=== PATIENT | male | born 1950 | race Caucasian/White ===

== ENCOUNTER 2019-04-07 21:29 | Emergency (ER) | payer OTHER ==
--- OUTSIDE RECORDS SUMMARY | 2019-04-07 21:39 | XMS REPORT | Continuity of Care Document ---
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 Provider Date Calcific tendinitis of left shoulder Frankie Richey MD Onset: 03/19/2019 Social History Type Date Description Comments Sex Unknown Tobacco Use Start: Unknown Patient has never smoked Smoking Status Reviewed: 03/19/19 Patient has never smoked Allergies, Adverse Reactions, Alerts Description No Known Drug Allergies Medications Description No Active Medications Immunizations Description No Information Available Vital Signs Date Vital Result Comment 03/19/2019 10:20am Height 69 inches 5'9" Weight 162.00 lb Heart Rate 67 /min BP Systolic 124 mmHg BP Diastolic 72 mmHg Body Temperature 97.7 F Pain Level 3 BMI (Body Mass Index) 23.9 kg/m2 Results Description No Information Available Procedures Date Code Description Status 03/19/2019 81547 Inject/Drain Joint/Bursa Major W/O US Completed Medical Devices Description No Information Available Encounters Description No Information Available Assessments Date Code Description Provider 03/19/2019 M75.32 Calcific tendinitis of left shoulder Frankie Richey MD Plan of Treatment 03/19/2019 - Frankie Richey MDM75.32 Calcific tendinitis of left shoulderNew Therapy:Physical TherapyFollow up:Follow up: 6 weeks Functional Status Description No Information Available Mental Status Description No Information Available Referrals Description No Information Available
--- NOTE | 2019-04-07 22:00 | ED ---
Syncope/Near Syncope - HPI Summary HPI Summary: This patient is a 69 year old F presenting to ED with a chief complaint of syncope SIDE LASTER TACK. Earlier today, patient felt like he was starting to get a cold. Patient was working on the car at noon at whacked his right hand. He had a blood blister on his right hand. Patient washed the cut with water and bandaged it. Patient then walked to the DrDoctor from home and then came home and took a nap. He had dinner and helped cook specialty foreign food and felt fine then. He then felt lightheadedness and fainted while getting up out of bed and thinks he hit some boxes. He denies injury. He does not think he lost consciousness for very long. Per patient , she heard a noise from upstairs and states that the patient called out for help 5 minutes after the noise. Patient states he called for help right after waking up. Patients found the patient lying in the floor awake. When patient awoke he noted that his left eye was slightly blurry and he had skin diaphoresis. Patients helped the patient get up and walk down the stairs to come to the ED. Patient denies chest pain, back pain , headache, nausea, vomiting. Patient reports dry mouth. Patient previously had one syncopal episode thirty years ago. The patient rates the pain 7/10 in severity. Symptoms aggravated by nothing. Symptoms alleviated by nothing. - History Of Current Complaint Chief Complaint: EDSyncope Time Seen by Provider: 04/07/19 21:48 Hx Obtained From: Patient, Family/Containers Sales Representative - Onset/Duration: Sudden Onset, Lasting Minutes - 5 minutes, Resolved Context: Unwitnessed, Loss Of Consciousness Activity At Onset: Other - Getting up out of bed Associated Head Trauma: No Aggravating Factor(s): Nothing Alleviating Factor(s): Nothing Associated Signs And Symptoms: Negative - chest pain, back pain, headache, nausea, vomiting, Diaphoresis, Lightheadedness, Other - Right thumb pain, dry mouth - Allergies/Home Medications Allergies/Adverse Reactions: Allergies Allergy/AdvReac Type Severity Reaction Status Date / Time No Known Allergies Allergy Verified 04/07/19 21:33 PMH/Surg Hx/FS Hx/Imm Hx Endocrine/Hematology History: Denies: Hx Diabetes Cardiovascular History: Denies: Hx Angina, Hx Congenital Heart Disease, Hx Congestive Heart Failure, Hx Coronary Artery Disease, Hx Hypercholesterolemia, Hx Hypertension, Hx Myocardial Infarction Respiratory History: Denies: Hx Asthma, Hx Chronic Obstructive Pulmonary Disease (COPD) Sensory History: Reports: Hx Contacts or Glasses Denies: Hx Hearing Aid Opthamlomology History: Reports: Hx Contacts or Glasses - Surgical History Surgery Procedure, Year, and Place: CAROLYN CATARACTS, 2002, [facility]. TONSILECTOMY, AGE 11, [facility] Hx Anesthesia Reactions: No Infectious Disease History: No Infectious Disease History: Denies: Traveled Outside the [place] in Last 30 Days - Family History Known Family History: Positive: Respiratory Disease - COPD, Other - Lung CA - Social History Alcohol Use: Occasionally Hx Substance Use: No Substance Use Type: Reports: None Hx Tobacco Use: No Smoking Status (MU): Never Smoked Tobacco Review of Systems Positive: Skin Diaphoresis Positive: Blurred Vision - Left eye ENT: Other - Dry mouth Negative: Chest Pain Negative: Vomiting, Nausea Musculoskeletal: Negative - Negative back pain, Other - Right thumb laceration and pain Neurological: Other - Lightheadedness All Other Systems Reviewed And Are Negative: Yes Physical Exam - Summary Physical Exam Summary: Appearance: Well-appearing, Well-nourished, lying in bed comfortable Skin: Warm, dry, no obvious rash Eyes: sclera anicteric, no conjunctival pallor ENT: mucous membranes moist Neck: deferred Respiratory: No signs of respiratory distress Cardiovascular: Appears well perfused, pulses are nml Abdomen: deferred Musculoskeletal: Small flat laceration about 1cm on the radial side of the dorsal thumb overlying the IP joint. The distal phalanx is held in flexion and the patient is unable to extend the phalanx. Neurological: Awake and alert, mentation is normal, speech is fluent and appropriate Psychiatric: affect is normal, does not appear anxious or depressed Triage Information Reviewed: Yes Vital Signs On Initial Exam: Initial Vitals Temp Pulse Resp BP Pulse Ox 97.7 F 71 15 97/71 96 04/07/19 21:31 04/07/19 21:31 04/07/19 21:31 04/07/19 21:31 04/07/19 21:31 Vital Signs Reviewed: Yes Procedures - Sedation Patient Received Moderate/Deep Sedation with Procedure: No - Splinting Right Thumb Location: Right thumb into 1st metacarpal Pre-Made Type: Aluminum foam Pre-Proc Neuro Vasc Exam: normal Post-Proc Neuro Vasc Exam: normal Splint Applied by Provider: Ricci Fagan Diagn[facility] - Vital Signs Vital Signs Temp Pulse Resp BP Pulse Ox 04/07/19 21:31 97.7 F 71 15 97/71 96 - Laboratory Result Diagrams: 04/07/19 22:12 04/07/19 22:12 Lab Statement: Any lab studies that have been ordered have been reviewed, and results considered in the medical decision making process. - EKG 2145 Cardiac Rate: NL - 68 BPM EKG Rhythm: Sinus Rhythm ST Segment: Normal Ectopy: None Summary of EKG Findings: NSR at 68 BPM, P waves, QRS complex, and T waves are within normal limits, T waves and intervals are normal, no ischemic changes. This is a normal EKG. Dr. Fagan has reviewed and interpreted this EKG. Re-Evaluation - Re-Evaluation First Eval Re-Evaluation Time: 00:46 Comment: Discussed results with patient. Splinted patient's thumb. Patient will be discharged home with dx of syncope, right thumb laceration, tendon laceration. Patient understands and agrees with this plan. Course/Dx Course Of Treatment: This patient is a 69 year old F presenting to ED with a chief complaint of syncope SIDE LASTER TACK. EKG at 6 revealed NSR at 68 BPM, P waves, QRS complex, and T waves are within normal limits, T waves and intervals are normal, no ischemic changes. This is a normal EKG. In the ED course, patient received fluids. Blood work revealed WBC 12.5, MPV 6.0, neutrophils 10.8, lymphocytes 0.7, sodium 132, chloride 99, creatinine 1.22, glucose 205. UA revealed 1+ urine ketone and 2+ urine glucose. I splinted the patient's thumb with an aluminum foam splint that goes along the right thumb into the first metacarpal. Discussed results with patient. Patient will be discharged home with dx of syncope and right thumb laceration and tendon laceration. Patient understands and agrees with this plan. - Diagnoses Provider Diagnoses: Syncope, Laceration of right thumb, Tendon laceration Discharge ED - Sign-Out/Discharge Documenting (check all that apply): Patient Departure - Discharge - Discharge Plan Condition: Good Disposition: HOME Prescriptions: Cephalexin CAP* [Keflex CAP*] 500 mg PO QID #20 cap Patient Education Materials: Syncope (ED), Laceration Without Closure (ED), Tendon Laceration (ED) Referrals: Garret Lira MD [Medical Doctor] - As Soon As Possible Porfirio Long MD [Primary Care Provider] - 3 Days (call for followup appt to see if your doctor feels further testing might be needed) Additional Instructions: Call the orthopedic clinic in the am and explain your injury and that you cannot extend the distal phalanx of the thumb, and that the ER doctor was concerned that you have an extensor tendon laceration. They will get you in to see the right doctor probably within the next few days. - Billing Disposition and Condition Condition: GOOD Disposition: Home - Attestation Statements Document Initiated by Konrad: Yes Documenting Scribe: Haris Trammell Provider For Whom Konrad is Documenting (Include Credential): Ricci Fagan MD Scribe Attestation: Haris Vazquez, scribed for Ricci Fagan MD on 04/08/19 at 0509. Scribe Documentation Reviewed: Yes Provider Attestation: The documentation as recorded by the Haris ibrahim accurately reflects the service I personally performed and the decisions made by me, Ricci Fagan MD Status of Scribmelva Document: Viewed
[2019-04-07] MEDS ORDERED: NS 0.9% 1000 ML** 1,000 ML IV ONE (22:04)
[2019-04-07 22:19] LABS: ABS Basophils 0.1 10^3/ul (0-0.2); ABS Eosinophils 0.2 10^3/ul (0-0.6); ABS Lymphocytes 0.7 10^3/ul (1.0-4.8); ABS Monocytes 0.8 10^3/ul (0-0.8); ABS Neutrophils 10.8 10^3/ul (1.5-7.7); Eosinophil % 1.2 %; Hematocrit 42 % (42-52); Hemoglobin 14.3 g/dL (14.0-18.0); Lymphocyte % 5.6 %; Mean Corpuscular HGB Conc 34 g/dL (31-36); Mean Corpuscular Hemoglobin 31 pg (27-31); Mean Corpuscular Volume 92 fL (80-94); Platelet Count 237 10^3/uL (150-450); Red Blood Count 4.57 10^6 /uL (4.18-5.48); Red Cell Distribution Width 13 % (10-15); White Blood Count 12.5 10^3/uL (3.5-10.8)
[2019-04-07 22:36] LABS: Albumin 3.8 g/dL (3.2-5.2); Albumin/Globulin Ratio 1.3 (1-3); BUN/Creatinine Ratio 13.1 (8-20); Calcium 8.9 mg/dL (8.6-10.3); EGFR African American 71.1 (>60); EGFR Non-African American 58.7 (>60); Globulin 2.9 g/dL (2-4); Potassium 3.9 mmol/L (3.5-5.0); Total Bilirubin 0.7 mg/dL (0.2-1.0); Total Protein 6.7 g/dL (6.4-8.9)
[2019-04-07 22:38] LABS: Troponin I 0.01 ng/mL (<0.04)
[2019-04-07 23:28] LABS: TSH (Thyroid Stimulating Horm) 1.79 mcIU/mL (0.34-5.60)
[2019-04-07 23:46] LABS: Urine Appearance Clear; Urine Bilirubin Negative (Negative); Urine Blood Negative (Negative); Urine Color Yellow; Urine Glucose 2+(150 mg/dL) (Negative); Urine Ketones 1+ (Negative); Urine Nitrite Negative (Negative); Urine Protein Negative (Negative); Urine Specific Gravity 1.011 (1.010-1.030); Urine Urobilinogen Negative (Negative)
[2019-04-08 01:07] VITALS: BP 110/69
== END 2019-04-08 01:06 | disposition home or self-care (01) ==
LOC: ED 21:29
DX: R55 Syncope and collapse (principal); S56.021A Laceration of flexor muscle, fascia and tendon of right thumb at forearm level, initial encounter; S61.011A Laceration without foreign body of right thumb without damage to nail, initial encounter; W22.8XXA Striking against or struck by other objects, initial encounter; Y92.9 Unspecified place or not applicable; R42 Dizziness and giddiness
CPT/HCPCS: 36415; 80053; 81003; 84443; 84484; 85025; 93005; 96360; 99283

== ENCOUNTER → 2019-04-18 05:46 | Day surgery (SDC) | payer OTHER ==
--- NOTE | 2019-04-16 14:49 | HP ---
PREOPERATIVE HISTORY AND PHYSICAL: DATE OF SURGERY/ADMISSION: 04/18/19 DATE OF OFFICE VISIT/ENCOUNTER: 04/15/19 ATTENDING SURGEON: Pao Conrad MD * (DICTATED BY ARJUN DUBOSE) PROCEDURE: Extensor tendon repair, right thumb. HISTORY OF PRESENT ILLNESS: This is a 69-year-old male who sustained injury to his right thumb approximately 2 weeks ago when he was working on his car. The patient reports that he smashed his thumb and the gloves that he had on were ripped through easily and he sustained a puncture over his right thumb at the IP joint. He was seen at [facility] and the patient had the wound attended to, he was placed on Keflex and in a splint to keep the IP joint extended. He has had difficulty extending his thumb since the injury occurred. Over time, the puncture wound has healed, but the patient is still not able to extend the thumb. He has good flexion. He finished the antibiotics with no problems with infection. He denies any associated numbness or tingling. Dr. Conrad is recommending surgical intervention at this time to repair the extensor tendon of the right thumb. PAST MEDICAL HISTORY: Unremarkable. PAST SURGICAL HISTORY: Hernia repair. CURRENT MEDICATIONS: Advil PM p.r.n. ALLERGIES: No known drug allergies. FAMILY MEDICAL HISTORY: Heart disease. 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 He denies tobacco use and recreational drug use. He drinks alcohol on occasion. REVIEW OF SYSTEMS: Negative for general, cephalic, cardiovascular, respiratory , GI, , other musculoskeletal, integumentary, endocrine, neurologic, and hematologic symptoms. Infectious Disease: Negative for MRSA, hepatitis C, HIV. PHYSICAL EXAMINATION GENERAL: Well-developed, well-nourished 69-year-old male, in no acute distress. VITAL SIGNS: Height 5 feet 9 inches, weight 162 pounds, pulse rate 72, blood pressure 128/68. HEENT: Normocephalic, atraumatic. Pupils are equal, round, and reactive to light and accommodation. Extraocular movements are intact. Throat is clear. NECK: Supple. No palpable lymph nodes. PULMONARY: Lungs are clear to auscultation bilaterally. No wheezes, rales, or rhonchi. CARDIOVASCULAR: Regular rate and rhythm. S1, S2. No murmurs, rubs, or gallops. No edema. ABDOMEN: Positive bowel sounds, soft, nontender. NEUROLOGIC: Alert and oriented x3. Cranial nerves II through XII are intact. Sensation is intact to light touch. MUSCULOSKELETAL: On exam of his right thumb, the puncture wound is healed. Sensation is intact. No sign of infection. The patient is unable to extend the thumb. He has good thumb flexion. IMPRESSION: Right thumb extensor tendon laceration. PLAN: The patient is scheduled to undergo an extensor tendon repair, right thumb with Dr. Conrad on 04/18/19. He will return to the office in 10 days postop for followup and suture removal. A prescription for [place] was e-scribed to the patient's pharmacy for postoperative pain management. ARJUN DUBOSE [id number]/CPS #: [id number] MTDMariam
[~2019-04-18 05:46] MED LIST: Buffered Lidocaine 1% SYRIN* 1 ML/SYRINGE INTRADERM ONE; Dexamethasone IV* 4 MG/ML 1 ML (4 MG) ONE; Famotidine IV* 10 MG/ML 2 ML (20 mg) IV ONE; Famotidine IV* 10 MG/ML 2 ML (20 mg) ONE; KETAMINE HCL* 50 MG/ML 10 ML VIAL ONE; Ketorolac INJ* 30 MG/ML 1 ML VIAL ONE; Lactated Ringers 1000 ML Bag* 1,000 ML IV SCH; Lidocaine 1% INJ* 10 MG/ML 30 ML SDV ONE; Lidocaine 2% PF * 5 ML VIAL ONE; Midazolam* 1 MG/ML 5 ML VIAL (5 MG) ONE; Naloxone* 0.4 MG/ML 1 ML VIAL IV PRN; Ondansetron INJ* 2 MG/ML VIAL IV PRN; Ondansetron INJ* 2 MG/ML VIAL ONE; Propofol* 10 MG/ML 20 ML BTL ONE; ceFAZolin 2 GM in NS PREMIX(*) 2 GM/100 ML BAG IVPB ONE; fentaNYL* 50 MCG/ML 2 ML VIAL (100 MCG VIAL) IV PRN; fentaNYL* 50 MCG/ML 2 ML VIAL (100 MCG VIAL) ONE
[2019-04-18 10:09] VITALS: BP 107/74
--- NOTE | 2019-04-23 11:44 | OP ---
CC: Dr. Conrad OPERATIVE REPORT: DATE OF OPERATION: 04/18/19 DATE OF : 48 SURGEON: Pao Conrad MD CASINO PORTER: ARJUN Nam ANESTHESIA: Local MAC. PRE-OP DIAGNOSIS: Extensive tendon laceration of the right thumb. POST-OP DIAGNOSIS: Extensive tendon laceration of the right thumb. OPERATIVE PROCEDURE: Right thumb extensor tendon repair. ESTIMATED BLOOD LOSS: Zero. TOURNIQUET TIME: Approximately 20 minutes. INDICATION FOR PROCEDURE: Daniel is a 69-year-old man who suffered injury with laceration of his right thumb. He is unable to extend his thumb and presents for extensor tendon repair. DESCRIPTION OF PROCEDURE: The patient was brought to the operating room and was given a sedation ane sthetic and a digital block with 10 cc of 1% plain lidocaine. The skin of his right hand and forearm was prepped and draped in the usual sterile fashion. The hand and forearm were exsanguinated and the tourniquet elevated to 250 mmHg. The incision was on the dorsal aspect of the thumb IP joint. We w ere able to visualize both ends of the extensor tendon. It was 95% lacerated with passive full exten [place] of the thumb. The extensor tendon ends were reapproximated with 4-0 nylon suture in interrupted fashion. This then held the thumb in good position and with passive range of motion. There was no gapping at the repair site. The wound was irrigated and skin edges reapproximated with 4-0 nylon sut ure. The wound was dressed with Xeroform, 4x4, Webril, and thumb spica splint. The patient tolerated the procedure well and was brought to the recovery room in good condition. [id number]/[facility] #: [id number]
== END | disposition home or self-care (01) ==
LOC: OR 05:46
PROVIDERS: ATTEND Orthopaedic Surgery
DX: S66.221A Laceration of extensor muscle, fascia and tendon of right thumb at wrist and hand level, initial encounter (principal); W26.8XXA Contact with other sharp object(s), not elsewhere classified, initial encounter; Y92.9 Unspecified place or not applicable
CPT/HCPCS: J0690; J1100; J1885; J2250; J2405; J2704; J3010